=== PATIENT | male | born 1955 | race Hispanic/Latino ===

== ENCOUNTER 2025-07-10 18:30 | Emergency (ER) | payer MEDICARE ==
[2025-07-10 18:35] VITALS: PULSE 82; RESP 18; TEMP 98.5
[2025-07-10] MEDS ORDERED: IOPAMIDOL 370 MG/ML 100 ML INFUS..BTL INJ ONE (19:04)
[2025-07-10] MEDS: Morphine 4mg INJECTION 4 MG/ML INJ IV ONE (19:50)
[2025-07-10] MEDS ORDERED: AMOX TR-K CLV1 EAC2 PO (20:32)
[2025-07-10 20:50] VITALS: BP 203/95; PULSE 80; RESP 18; TEMP 98.9; O2SAT 98
== END 2025-07-10 20:50 | disposition home or self-care (01) ==
LOC: FSED 18:37
DX: R10.30 Lower abdominal pain, unspecified (principal); K57.32 Diverticulitis of large intestine without perforation or abscess without bleeding; R19.7 Diarrhea, unspecified; R53.1 Weakness; I10 Essential (primary) hypertension
CPT/HCPCS: 74177; 80053; 81003; 85025; 99284; J2270; Q9967